=== PATIENT | female | born 1975 | race Caucasian/White ===

== ENCOUNTER → 2022-06-23 | Outpatient (CLI) | payer OTHER | END | disposition home or self-care (01) | LOC: CARD 12:13 | PROVIDERS: ATTEND Internal Medicine Cardiovascular Disease | DX: Z01.810 Encounter for preprocedural cardiovascular examination (principal); I51.7 Cardiomegaly ==

== ENCOUNTER 2022-07-29 17:44 | Emergency (ER) | payer OTHER ==
[~2022-07-29] VITALS: Ht 149.8 cm; Wt 124.7 kg
[2022-07-29] MEDS ORDERED: GABAPENTIN600 MG PO (18:02)
[2022-07-29] MEDS ORDERED: ROPINIROLE HYDRO1 MG PO (18:02)
[2022-07-29] MEDS ORDERED: BUSPIRONE HCL10 MG PO (18:02)
[2022-07-29] MEDS ORDERED: SERTRALINE HYD100 MG PO (18:02)
[2022-07-29] MEDS ORDERED: FUROSEMIDE20 M1 PO (18:02)
[2022-07-29] MEDS ORDERED: METAXALONE800 M2 PO (18:03)
[2022-07-29] MEDS ORDERED: VENLAFAXINE H37.5 M5 PO (18:03)
[2022-07-29 19:58] LABS: BILIRUBIN Negative (Negative); BLOOD 2+ (Negative); CLARITY Clear (Clear); COLOR Yellow (Yellow); GLUCOSE 3+ (Negative); KETONE Negative (Negative); LEUKO ESTERASE Negative (Negative); NITRITE Negative (Negative); PH 5.5 (4.5-8.0); SPECIFIC GRAVITY >= 1.030 (1.001-1.030); UROBILINOGEN 0.2 E.U./dl (0.0-1.0)
[2022-07-29 20:03] LABS: BASO % 0.1 % (0.0-1.0); EOS # 0.1 10*3/uL (0.0-0.4); EOS % 0.5 % (1.0-4.0); HEMATOCRIT 47.8 % (37.0-47.0); LYMPH # 1.4 10*3/uL (1.3-4.4); LYMPH % 12.2 % (27.0-41.0); MEAN CORPUSCULAR HGB 29.4 pg (27.0-31.0); MEAN CORPUSCULAR HGB CONC 32.6 g/dl (33.0-37.0); MEAN PLATELET VOLUME 9.9 fl (9.6-12.3); MONO # 0.5 10*3/uL (0.1-1.0); MONO % 4.3 % (3.0-9.0); NEUT # 9.2 10*3/uL (2.3-7.9); NEUT % 82.6 % (47.0-73.0); PLATELET COUNT AUTOMATED 224 10*3/uL (130-400); RED BLOOD COUNT 5.31 10*6/uL (4.10-5.10); WHITE BLOOD COUNT 11.1 10*3/uL (4.8-10.8)
[2022-07-29 20:19] LABS: ALKALINE PHOSPHATASE 87 U/L (46-116); BUN 13 mg/dl (9-23); CHLORIDE 104 mmol/L (98-107); LIPASE 47 U/L (12-53); POTASSIUM 4.2 mmol/L (3.4-5.1); SGPT/ALT 18 U/L (10-49); TOTAL PROTEIN 7.7 gm/dL (6.0-8.0)
[2022-07-29 20:23] LABS: WBC 0-2 wbc/hpf (0-5)
== END 2022-07-29 22:16 | disposition home or self-care (01) ==
LOC: ED 17:44
PROVIDERS: Physician Assistant
DX: R10.13 Epigastric pain (principal); F32.A Depression, unspecified; E11.9 Type 2 diabetes mellitus without complications; Z88.8 Allergy status to other drugs, medicaments and biological substances

== ENCOUNTER 2023-09-12 08:01 | Emergency (ER) | payer OTHER ==
[~2023-09-12] VITALS: Ht 149.8 cm; Wt 118.8 kg
[~2023-09-12 08:01] MED LIST: ATORVASTATIN CA80 M1 PO; BUSPIRONE HCL10 MG PO; FEROSUL325 M1 PO; FUROSEMIDE20 M1 PO; GABAPENTIN600 MG PO; METAXALONE800 M2 PO; ROPINIROLE HYDRO1 MG PO; SERTRALINE HYD100 MG PO; Synthroid,Levo25 MCG PO; TRULICITY1.5 MG/0.5 SC; VENLAFAXINE H37.5 M5 PO; WARFARIN SODIU2.5 MG PO
[2023-09-12 09:23] LABS: BASO % 0.3 % (0.0-1.0); EOS # 0.1 10*3/uL (0.0-0.4); EOS % 1.6 % (1.0-4.0); HEMATOCRIT 41.9 % (37.0-47.0); LYMPH # 1.6 10*3/uL (1.3-4.4); MEAN CELL VOLUME 94.4 fl (81.0-99.0); MEAN CORPUSCULAR HGB 30.6 pg (27.0-31.0); MEAN CORPUSCULAR HGB CONC 32.5 g/dl (33.0-37.0); MEAN PLATELET VOLUME 9.6 fl (9.6-12.3); MONO # 0.5 10*3/uL (0.1-1.0); MONO % 6.7 % (3.0-9.0); NEUT # 5.6 10*3/uL (2.3-7.9); PLATELET COUNT AUTOMATED 173 10*3/uL (130-400); RED BLOOD COUNT 4.44 10*6/uL (4.10-5.10); RED CELL DISTRI WIDTH 13.2 % (0-14.5); WHITE BLOOD COUNT 7.9 10*3/uL (4.8-10.8)
[2023-09-12 09:33] LABS: ACT PARTIAL THROMBO TIME 27.6 SECONDS (20.0-32.1)
[2023-09-12] MEDS ORDERED: IOHEXOL 300 MG/ML 100 ML VIAL IV ONE (09:35)
[2023-09-12 09:38] LABS: BILIRUBIN Negative (Negative); BLOOD Negative (Negative); CLARITY Clear (Clear); COLOR Yellow (Yellow); GLUCOSE 3+ (Negative); KETONE Negative (Negative); LEUKO ESTERASE Negative (Negative); NITRITE Negative (Negative); PH 5.5 (4.5-8.0); SPECIFIC GRAVITY 1.025 (1.001-1.030); UROBILINOGEN 0.2 E.U./dl (0.0-1.0)
[2023-09-12 09:44] LABS: ALKALINE PHOSPHATASE 101 U/L (46-116); BUN 12 mg/dl (9-23); CHLORIDE 101 mmol/L (98-107); LIPASE 112 U/L (12-53); POTASSIUM 4.6 mmol/L (3.4-5.1); SGPT/ALT 129 U/L (5-49); TOTAL PROTEIN 6.9 gm/dL (6.0-8.0)
[2023-09-12] MEDS ORDERED: IOHEXOL 300 MG/ML 100 ML VIAL ONE (09:48)
[2023-09-12 10:12] LABS: BACTERIA 1+
[2023-09-12] MEDS ORDERED: SODIUM CHLORIDE 0.9% 100 ML BAG IV ONE (11:55)
[2023-09-12] MEDS ORDERED: IOHEXOL 350 MG/ML 100 ML VIAL IV ONE (11:55)
[2023-09-12] MEDS ORDERED: TYLENOL EXTRA500 MG PO (14:16)
[2023-09-12] MEDS ORDERED: ONDANSETRON HYDR4 M1 PO (14:16)
[2023-09-12] MEDS ORDERED: ASPERCREME LID1 EACH T (14:16)
[2023-09-12] MEDS ORDERED: Ondansetron Hydrochloride 4 MG TAB PO ONE (14:20)
[2023-09-12] MEDS ORDERED: ACETAMINOPHEN 325 MG TAB PO ONE (14:20)
== END 2023-09-12 14:40 | disposition home or self-care (01) ==
LOC: ED 08:01
PROVIDERS: Emergency Medicine
DX: I27.82 Chronic pulmonary embolism (principal); I71.9 Aortic aneurysm of unspecified site, without rupture; K80.20 Calculus of gallbladder without cholecystitis without obstruction; D68.59 Other primary thrombophilia; R91.1 Solitary pulmonary nodule; D68.32 Hemorrhagic disorder due to extrinsic circulating anticoagulants; E11.9 Type 2 diabetes mellitus without complications; F41.9 Anxiety disorder, unspecified; F32.A Depression, unspecified; E78.5 Hyperlipidemia, unspecified; M54.6 Pain in thoracic spine; Z79.01 Long term (current) use of anticoagulants; Z88.8 Allergy status to other drugs, medicaments and biological substances; Z79.899 Other long term (current) drug therapy; Z90.711 Acquired absence of uterus with remaining cervical stump

== ENCOUNTER → 2023-09-14 | Outpatient (CLI) | payer OTHER ==
[~2023-09-14] MED LIST changes: +ASPERCREME LID1 EACH T; +ONDANSETRON HYDR4 M1 PO; +TYLENOL EXTRA500 MG PO
== END | disposition home or self-care (01) ==
LOC: LAB 12:24
PROVIDERS: ATTEND Internal Medicine
DX: R79.1 Abnormal coagulation profile (principal)

== ENCOUNTER 2023-09-28 11:38 | Emergency (ER) | payer OTHER ==
[~2023-09-28] VITALS: Ht 154.9 cm; Wt 131.5 kg
== END 2023-09-28 14:29 | disposition home or self-care (01) ==
LOC: ED 11:38
DX: S93.402A Sprain of unspecified ligament of left ankle, initial encounter (principal); E11.9 Type 2 diabetes mellitus without complications; I50.9 Heart failure, unspecified; F32.A Depression, unspecified; F41.9 Anxiety disorder, unspecified; Z88.8 Allergy status to other drugs, medicaments and biological substances; Z90.710 Acquired absence of both cervix and uterus; X50.1XXA Overexertion from prolonged static or awkward postures, initial encounter; Y93.68 Activity, volleyball (beach) (court); Y92.488 Other paved roadways as the place of occurrence of the external cause; Y99.8 Other external cause status